=== PATIENT | female | born 1965 | race Caucasian/White ===

== ENCOUNTER 2024-08-02 23:30 | Emergency (ER) | payer BC, SELFPAY ==
[2024-08-02 23:40] VITALS: BP 114/80
[2024-08-03 01:28] VITALS: BMI 24.1
[2024-08-03 01:32] VITALS: BP 129/84
--- NOTE | 2024-08-03 02:39 | ED.MUSCINJ ---
HPI-Injury
General
Chief Complaint: Musculo-Skeletal Complaint
Source: patient and family
Time Seen by Provider: 08/03/24 02:24
History of Present Illness-Injury
Initial Injury comments:
Pleasant 59-year-old female presents to the emergency department after tripping and falling. She caught her leg on a chair and fell and hit a stool. She landed on her left ribs. She states that she has some pain with movement. Denies any
shortness of breath. This happened at 7 PM. She did not take any pain medications. She denies head injury or loss of consciousness. Reports no dizziness, blurry vision, or headache. Denies chest pain or any shortness of breath.
Phy Exam
General Physical Exam
General Presentation: well appearing and no apparent distress
General Skin: warm and dry
General Habitus: normal
General Mental: alert
General Hydration: appears well hydrated
ENT Exam
ENT Exam: EOMI, pharynx normal, neck supple and normocephalic
Eye Exam
Eye Exam: PERRL, cornea clear and conjunctiva normal
Cardiovascular Exam
Cardiovascular Exam: regular rate/rhythm, no edema, no murmur and normal peripheral pulses
Pulmonary Exam
Pulmonary Exam: lungs clear, no respiratory distress, no rales, no crackles, no rhonchi, no stridor, no wheezing and no cough
Gastrointestinal Exam
Gastrointestinal Exam: normal bowel sounds, non tender, soft, no organomegaly, no pulsatile mass and non distended
Neurological Exam
Neurological Exam: alert, oriented x3, no motor deficits and speech normal
Musculoskeletal Exam
Musculoskeletal Exam: full ROM, no edema and other (Left-sided rib tenderness to palpation)
Skin Exam
Skin Exam: normal color, warm/dry, no rash, no petechia, tenderness (Left 5th through 7th rib) and other (No obvious contusion)
Psychiatric Exam
Psychiatric Exam: normal mood/affect
Injury Course
Orders/Labs/Results
Orders:
Orders
08/03/24 00:00
CR Ribs-left 3 Vw W/pa Chest Urgent
Reason For Exam: FALL
08/03/24 02:38
Oxycodone/Acetaminophen [Percocet 5/325] 1 tablet PO NOW STA
Incentive Spirometry [Rx Incentive Spirometry] [RESP] Urgent
Frequency: q1h while awake
*Radiology
Radiology exam reviewed: all reviewed NAD by ED Provider
*Pulse Oximetry
Patient hypoxic: no
*Critical Care Note
Total Time (30-74mins, 75-104mins- exclusive of procedures): Not Applicable
ED Attending Note
-
Portions of this chart may have been created with voice recognition software.� Occasional wrong word or��sound alike� substitutions may have occurred due to the inherent limitations of voice recognition software.
Discharge Plan
Departure
Patient Disposition: Home (Routine Discharge)
Date of Disposition: 08/03/24
Time of Disposition: 02:39
Patient with high blood pressure during this ER visit?: Yes
Condition: Good
Discharge Problem:
Contusion of rib on left side
Instructions: Rib injury in adults, Using Cold for Pain, How to use an incentive spirometer, BLOOD PRESSURE
Prescriptions:
New
oxycodone-acetaminophen [Percocet] 5-325 mg Tablet
1 tab PO Q4HPRN PRN (Reason: pain) Qty: 14 0RF
diclofenac sodium 75 mg tablet,delayed release (DR/EC)
75 mg PO BID Qty: 10 0RF
Referrals:
Aracely Molina MD [Family Provider] -
Activity Restrictions/Additional Instructions:
Your prescriptions were sent electronically to the pharmacy that you specified.
It was a pleasure meeting you and taking part in your care. We hope for your continued healing and wellness.
Please read discharge instructions in their entirety. However, they are for general education and may not describe your exact diagnosis at discharge. Information on your ER visit and medical conditions were discussed with you along with appropriate
follow up information...
If indicated, please take your medications as instructed and indicated on discharge paperwork.
Please schedule a follow up appointment as directed. Call to schedule an appointment
Please return to the emergency department with ANY change in, persisting, or worsening of symptoms. If any of your symptoms do not improve, or persist, or become more severe within 6-12 hours, please return to the emergency department for further
care.
Please return to the emergency department if you develop a headache, neck pain/stiffness, fever greater than 100.4F, chest pain, shortness of breath, persistent nausea, vomiting, slurred speech, difficulty walking, numbness/tingling, weakness, signs
of infection or any other symptoms that are worrisome to you.
If you have any questions or concerns please do not hesitate to call the Hospital at or E-mail me directly at [email or web address]
Interventions
Interventions:
*Risk Screen - Suicide Last Done: 08/02/24 23:40
*General Assessment Last Done: 08/03/24 01:29
*Neglect/Abuse Screening Last Done: 08/02/24 23:40
*ED- Fall Risk Assessment Last Done: 08/03/24 01:28
*ED COVID-19 Vaccine History Last Done: 08/03/24 01:28
ED-Musculoskeletal Assessment Last Done: 08/03/24 01:32
Discharge Date and Time
Print Language: AFGHAN
[2024-08-03] MEDS: PERCOCET 5/325 1 TABLET PO (02:46)
[2024-08-03 02:59] VITALS: BP 130/82
== END 2024-08-03 03:05 | disposition home or self-care (01) ==
LOC: EMR 23:30
PROVIDERS: EMERGENCY PHYSICIAN Student in an Organized Health Care Education/Training Program; FAMILY PHYSICIAN Internal Medicine
DX: S20.212A Contusion of left front wall of thorax, initial encounter (principal); W18.09XA Striking against other object with subsequent fall, initial encounter
CPT/HCPCS: 99283; 71101